=== PATIENT | female | born 1995 | race Caucasian/White ===

== ENCOUNTER 2024-10-10 03:32 | Emergency (ER) | payer MEDICAID, MEDICARE ==
[~2024-10-10] VITALS: Ht 154.9 cm; Wt 63.5 kg
[2024-10-10] MEDS ORDERED: LIDOCAINE HCL 2% 20 ML VIAL ONE (03:59)
[2024-10-10] MEDS ORDERED: SULF1TAB48 PO (04:16)
[2024-10-10] MEDS ORDERED: CEPH500T PO (04:16)
[2024-10-10] MEDS ORDERED: diphenhydrAMINE 25 MG CAP PO ONE (04:53)
[2024-10-10] MEDS: diphenhydrAMINE 25 MG CAP PO ONE (04:55)
[2024-10-10 06:11] VITALS: BP 128/76; TEMP 98.2; O2SAT 99
== END 2024-10-10 06:12 | disposition home or self-care (01) ==
LOC: ER 03:44
DX: L02.413 Cutaneous abscess of right upper limb (principal)
CPT/HCPCS: 99284; 10060; Q0163; J3490; A4606; A4663